=== PATIENT | male | born 1995 | race Hispanic/Latino ===

== ENCOUNTER 2022-05-05 21:55 | Emergency (ER) | payer SELFPAY ==
[2022-05-05] MEDS ORDERED: DIPHENHYDRAMINE 50 MG/ML VIAL ONE (22:35)
[2022-05-05] MEDS ORDERED: METOCLOPRAMIDE 10 MG/2mL INJ ONE (22:35)
[2022-05-05] MEDS ORDERED: ACETAMINOPHEN 500 MG TAB ONE (22:36)
[2022-05-05] MEDS ORDERED: KETOROLAC 30 MG/ML INJ ONE (22:36)
[2022-05-05] MEDS ORDERED: NA CHLORIDE 0.9% 1,000 ML ONE (22:36)
[2022-05-05 22:56] LABS: Absolute Lymphocytes (CBC) 1.3 K/uL (0.7-4.9); Hematocrit 42.7 % (39.6-49.0); Lymphocytes % 12.2 % (15.3-44.8); MCV 91.8 fL (80-100); RBC Red Blood Cell Count 4.65 M/uL (4.33-5.43)
[2022-05-05 23:16] LABS: Albumin 3.7 g/dL (3.4-5.0); Bilirubin Total 0.8 mg/dL (0.2-1.0); Magnesium 2.1 mg/dL (1.6-2.4); Potassium 3.6 mmol/L (3.5-5.1); Protein, Total 7.3 g/dL (6.4-8.2); Troponin High Sensitivity 16.9 pg/mL (<58.9)
--- NOTE | 2022-05-06 00:15 | ER ---
Nurse's Notes [facility] Name: Tres Phelan Age: 26 yrs Sex: Male : 1995 Arrival Date: 05/05/2022 Time: 21:58 Bed 12 Private MD: Diagnosis: Headache Presentation: 05/05 22:08 Chief complaint: Patient states: I think i have high blood pressure and i got check a kd3 few weeks ago at another hospital and that's what they told me. I feel like i still have the same symptoms. I have a headache, blurred vision, and i feel like i have an irregular heart beat. I do take testosterone. I used to take trembllone acetate and that might be what is making me feel this way. Coronavirus screen: Vaccine status: Patient reports being unvaccinated. Ebola Screen: No symptoms or risks identified at this time. Initial Sepsis Screen: Does the patient meet any 2 criteria? No. Patient's initial sepsis screen is negative. Does the patient have a suspected source of infection? No. Patient's initial sepsis screen is negative. Risk Assessment: Do you want to hurt yourself or someone else? Patient reports no desire to harm self or others. Onset of symptoms was May 05, 2022. 22:08 Method Of Arrival: Ambulatory kd3 22:08 Acuity: ANASTACIO 3 kd3 Triage Assessment: 22:12 General: Appears uncomfortable, Behavior is calm, cooperative. Pain: Complains of pain kd3 in headache. Neuro: Level of Consciousness is awake, alert, obeys commands, Oriented to person, place, time, situation. Cardiovascular: Patient's skin is warm and dry. Respiratory: Airway is patent Trachea midline Respiratory effort is even, unlabored, Respiratory pattern is regular, symmetrical. Historical: - Allergies: 22:11 No Known Allergies; kd3 - Immunization history:: Adult Immunizations up to date. - Social history:: Smoking status: Patient denies any tobacco usage or history of. - Family history:: not pertinent. Screenin:55 [facility] ED Fall Risk Assessment (Adult) History of falling in the last 3 months, ll3 including since admission No falls in past 3 months (0 pts) Confusion or Disorientation No (0 pts) Intoxicated or Sedated No (0 pts) Impaired Gait No (0 pts) Mobility Assist Device Used No (0 pt) Altered Elimination No (0 pt) Score/Fall Risk Level 0 - 2 = Low Risk Oriented to surroundings, Maintained a safe environment, Educated pt \T\ family on fall prevention, incl call for assistance when getting out of bed. Abuse screen: Denies threats or abuse. Denies injuries from another. Nutritional screening: No deficits noted. Tuberculosis screening: No symptoms or risk factors identified. Assessment: 22:30 General: Appears uncomfortable, Behavior is calm, cooperative, Reports feeling ill for ll3 2-3 days. Pain: Denies pain. Neuro: Level of Consciousness is awake, alert, obeys commands, Oriented to person, place, time, situation, Reports blurred vision dizziness, headache. Cardiovascular: Patient's skin is warm and dry. Respiratory: Respiratory effort is even, unlabored, Respiratory pattern is regular, symmetrical. Derm: Skin is pink, warm \T\ dry. 05/06 00:03 Reassessment: Patient and/or family updated on plan of care and expected duration. Pain ll3 level reassessed. Patient is alert, oriented x 3, equal unlabored respirations, skin warm/dry/pink. Patient states feeling better. Patient states symptoms have improved. Vital Signs: 05/05 22:07 BP 123 / 70; Pulse 95; Resp 19; Temp 100.3(O); Pulse Ox 98% on R/A; Weight 90.72 kg; kd3 Height 5 ft. 10 in. (177.80 cm); 05/06 00:03 BP 109 / 59; Pulse 76; Resp 16; Temp 97.8(O); Pulse Ox 97% on R/A; ll3 00:32 BP 107 / 54; Pulse 71; Resp 18; Pulse Ox 96% ; Pain 0/10; kl 05/05 22:07 Body Mass Index 28.70 (90.72 kg, 177.80 cm) kd3 ED Course: 05/05 21:58 Patient arrived in ED. ja2 22:09 Juvenal Bravo MD is Attending Physician. rt 22:11 Triage completed. kd3 22:11 Arm band placed on right wrist. kd3 22:48 Initial lab(s) drawn, by me, sent to lab. Inserted saline lock: 22 gauge in right ll3 antecubital area, using aseptic technique. Blood collected. 23:30 CT Head Brain wo Cont In Process Unspecified. EDMS 23:56 Patient has correct armband on for positive identification. Bed in low position. Call ll3 light in reach. Side rails up X 1. Client placed on continuous cardiac and pulse oximetry monitoring. NIBP monitoring applied. 23:56 No provider procedures requiring assistance completed. ll3 02 00:33 Patient did not have IV access during this emergency room visit. kl Administered Medications: 05/05 22:48 Drug: Reglan (metoCLOPramide) 10 mg Route: IVP; Site: right antecubital; ll3 22:49 Drug: Ketorolac 15 mg Route: IVP; Site: right antecubital; ll3 22:49 Drug: NS 0.9% 1000 ml Route: IV; Rate: 1 bolus; Site: right antecubital; ll3 23:46 Follow up: Response: No adverse reaction; IV Status: Completed infusion; IV Intake: ll3 1000ml 22:49 Drug: Benadryl (diphenhydrAMINE) 25 mg Route: IVP; Site: right antecubital; ll3 22:52 Not Given (Patient Refused): Tylenol 1000 mg PO once ll3 Medication: 23:56 VIS not applicable for this client. ll3 Intake: 23:46 IV: 1000ml; Total: 1000ml. ll3 Outcome: 05/06 00:13 Discharge ordered by . rt 00:33 Discharged to home ambulatory. kl 00:33 Condition: improved 00:33 Discharge instructions given to patient, Instructed on discharge instructions, follow up and referral plans. Demonstrated understanding of instructions, follow-up care. 00:33 Patient left the ED. Signatures: Dispatcher [employer] EDMS Juliet Andrew RN Martita Jaquez Lynsea, RN RN ll3 Amy Jacinto RN RN kd3 Juvenal Bravo MD MD rt
--- NOTE | 2022-05-06 00:15 | EDPHYS ---
Physician Documentation [facility] Name: Tres Phelan Age: 26 yrs Sex: Male : 1995 Arrival Date: 05/05/2022 Time: 21:58 Bed 12 Private MD: ED Physician Juvenal Bravo HPI: 05/05 23:03 This 26 yrs old Male presents to ER via Ambulatory with complaints of High Blood rt Pressure, Dizziness, Blurred Vision. 23:03 Patient presents to the ED with a headache. He states that he has had this headache off rt and on for several weeks. Was seen at a prior hospital, told that he had high blood pressure. He did not receive any work-up at that time. He reports of blurred vision, nausea. Of note, the patient does take testosterone and anabolic steroids. He denies other acute complaints at this time. Symptoms are moderate in severity, aching nature, nonradiating, no other aggravating elevating factors.. Historical: - Allergies: 22:11 No Known Allergies; kd3 - Immunization history:: Adult Immunizations up to date. - Social history:: Smoking status: Patient denies any tobacco usage or history of. - Family history:: not pertinent. ROS: 23:03 Neck: Negative for injury, pain, and swelling, Cardiovascular: Negative for chest pain, rt palpitations, and edema, Respiratory: Negative for shortness of breath, cough, wheezing, and pleuritic chest pain, MS/Extremity: Negative for injury and deformity, Skin: Negative for injury, rash, and discoloration, Psych: Negative for depression, anxiety, suicide ideation, homicidal ideation, and hallucinations. 23:03 Eyes: Positive for blurry vision, Negative for vision loss. 23:03 Abdomen/GI: Positive for nausea, Negative for abdominal pain. 23:03 Neuro: Positive for headache, Negative for altered mental status. Exam: 23:03 Constitutional: This is a well developed, well nourished patient who is awake, alert, rt and in no acute distress. Head/Face: Normocephalic, atraumatic. Neck: Trachea midline, no thyromegaly or masses palpated, and no cervical lymphadenopathy. Supple, full range of motion without nuchal rigidity, or vertebral point tenderness. No Meningismus. Chest/axilla: Normal chest wall appearance and motion. Nontender with no deformity. No lesions are appreciated. Cardiovascular: Regular rate and rhythm with a normal S1 and S2. No gallops, murmurs, or rubs. Normal PMI, no JVD. No pulse deficits. Respiratory: Lungs have equal breath sounds bilaterally, clear to auscultation and percussion. No rales, rhonchi or wheezes noted. No increased work of breathing, no retractions or nasal flaring. Abdomen/GI: Soft, non-tender, with normal bowel sounds. No distension or tympany. No guarding or rebound. No evidence of tenderness throughout. Skin: Warm, dry with normal turgor. Normal color with no rashes, no lesions, and no evidence of cellulitis. MS/ Extremity: Pulses equal, no cyanosis. Neurovascular intact. Full, normal range of motion. Psych: Awake, alert, with orientation to person, place and time. Behavior, mood, and affect are within normal limits. 23:03 ECG was reviewed by the Attending Physician. 23:03 Neuro: Awake, alert, oriented, speech normal, cranial nerves II through XII intact, strength and sensation intact in upper and lower extremities.. Vital Signs: 22:07 BP 123 / 70; Pulse 95; Resp 19; Temp 100.3(O); Pulse Ox 98% on R/A; Weight 90.72 kg; kd3 Height 5 ft. 10 in. (177.80 cm); 05/06 00:03 BP 109 / 59; Pulse 76; Resp 16; Temp 97.8(O); Pulse Ox 97% on R/A; ll3 00:32 BP 107 / 54; Pulse 71; Resp 18; Pulse Ox 96% ; Pain 0/10; kl 05/05 22:07 Body Mass Index 28.70 (90.72 kg, 177.80 cm) kd3 MDM: 05/05 22:17 Patient medically screened. rt 05/06 00:14 Differential diagnosis: Cavernous sinus thrombosis, hemorrhage, tumor, meningitis, rt encephalitis. Data reviewed: vital signs, nurses notes, lab test result(s), EKG, radiologic studies. I considered the following discharge prescriptions or medication management in the emergency department Medications were administered in the Emergency Department. See MAR. Independent interpretation of the following test(s) in the Emergency Department CT Scan: My interpretation is No obvious hemorrhage. Test considered but Not performed: Other Details Do not believe that lumbar puncture is indicated, patient has no meningismus to suggest meningitis, encephalitis, symptoms are not consistent with subarachnoid hemorrhage.. Response to treatment: the patient's symptoms have resolved after treatment. 05/05 22:28 Order name: CBC with Diff; Complete Time: 23:17 rt 05/05 22:28 Order name: CMP; Complete Time: 23:17 rt 05/05 22:28 Order name: Troponin High Sensitivity; Complete Time: 23:17 rt 05/05 22:28 Order name: Magnesium; Complete Time: 23:17 rt 05/05 22:28 Order name: CT Head Brain wo Cont rt EC/01 23:03 Rate is 89 beats/min. Rhythm is regular, Normal Sinus Rhythm with No ectopy. Right axis rt deviation noted. VT interval is normal. QRS interval is normal. QT interval is normal. No Q waves. T waves are Normal. No ST changes noted. Interpreted by me. Administered Medications: 22:48 Drug: Reglan (metoCLOPramide) 10 mg Route: IVP; Site: right antecubital; ll3 22:49 Drug: Ketorolac 15 mg Route: IVP; Site: right antecubital; ll3 22:49 Drug: NS 0.9% 1000 ml Route: IV; Rate: 1 bolus; Site: right antecubital; ll3 23:46 Follow up: Response: No adverse reaction; IV Status: Completed infusion; IV Intake: ll3 1000ml 22:49 Drug: Benadryl (diphenhydrAMINE) 25 mg Route: IVP; Site: right antecubital; ll3 22:52 Not Given (Patient Refused): Tylenol 1000 mg PO once ll3 Disposition Summary: 05/06/22 00:13 Discharge Ordered Location: Home rt Problem: an ongoing problem rt Symptoms: are resolved rt Condition: Stable rt Diagnosis - Headache rt Followup: rt - With: Private Physician - When: 5 - 6 days - Reason: Discharge Instructions: - Discharge Summary Sheet rt - General Headache Without Cause rt Forms: - Medication Reconciliation Form rt - Thank You Letter rt - Antibiotic Education rt - Prescription Opioid Use rt Signatures: Dispatcher [employer] Loraine Elam RN RN ll3 Amy Jacinto RN RN kd3 [place], Juvenal, MD MD rt
[2022-05-06 00:40] VITALS: TEMP 97.8
[2022-05-06 00:42] VITALS: BP 107/54; O2SAT 96
--- NOTE | 2022-05-06 14:10 | RAD REPORT ---
EXAM DESCRIPTION: CT - Head Brain Wo Cont - 05/06/2022 6:28 am CLINICAL HISTORY: 26 years Male headache COMPARISON: CT head without contrast dated 04/06/2022 TECHNIQUE: Contiguous axial images of the brain were obtained without the administration of intraven ous contrast.This exam was performed according to our departmental dose-optimization program which in cludes use of Automated Exposure Control, adjustment of the mA and/or kV according to patient size an d/or use of iterative reconstruction technique. DLP: 885 mGy*cm FINDINGS: Brain: No acute intracranial hemorrhage. No extra-axial collection. No mass effect or arjun iation. Ventricles: Within normal limits in size. Globes and orbits: No acute abnormality. Bones: No acute osseous finding Paranasal sinuses: No air-fluid levels. Mastoid air cells: Well pneumatized. Soft tissues: Within normal limits IMPRESSION: No acute intracranial abnormality. Electronically signed by: Rod Otto DO 05/05/2022 11:38 PM WEB MACHINE TENDER Due to temporary technical issues with the PACS/Fluency reporting system, reports are being signed by the in house radiologists without review as a courtesy to insure prompt reporting. The interpreting radiologist is fully responsible for the content of the report.
== END 2022-05-06 00:33 | disposition home or self-care (01) ==
LOC: ER 21:55
DX: R51.9 Headache, unspecified (principal); R11.0 Nausea
CPT/HCPCS: 36415; 70450; 80053; 83735; 84484; 85025; 93005; 96361; 96374; 96375; 99284; J1200; J2765; J7030